=== PATIENT | male | born 1995 | race American Indian/Alaskan Native ===

== ENCOUNTER 2017-10-12 19:26 | Emergency (ER) | payer SELFPAY ==
[2017-10-12 19:33] VITALS: BP 137/82
--- NOTE | 2017-10-12 21:04 | Emergency Department Report ---
Chief Complaint: Skin/Abscess/Foreign Body Stated Complaint: BOIL Time Seen by Provider: 10/12/17 21:01 - HPI History of Present Illness: 22-year-old -[place] male comes in complaining of boil like lesion on his back. Patient denies any pain or tenderness to palpation she reports that it comes and goes. He denies any fever chills no nausea vomiting. - ROS Review of Systems: Stable vital signs BP 137/82 heart rate 71 respirations 16 pulse ox 98 on room air temperature is 98.7 - Exam Vital Signs: Vital Signs 10/12/17 19:26 Temperature 98.7 F Pulse Rate 71 Respiratory 16 Rate Blood Pressure 137/82 O2 Sat by Pulse 98 Oximetry Physical Exam: Patient's alert and oriented 3. Patient is nontoxic in appearance Back there appears to be a 7 x 6 cm lipoma. It is nontender to palpate. MSE screening note: Focused history and physical exam performed. Due to findings the following was ordered: Discussed patient discuss considered non-emergency examination. Discussed the patient best be evaluated by primary care provider or surgeon. Patient verbalized understanding. ED Disposition for MSE Condition: Stable Referrals: AMANDA JALLOH MD [Primary Care Provider] - 3-5 Days
== END 2017-10-12 21:02 | disposition left against medical advice (07) ==
LOC: ED 19:26
DX: L02.222 Furuncle of back [any part, except buttock and flank] (principal); Z53.21 Procedure and treatment not carried out due to patient leaving prior to being seen by health care provider

== ENCOUNTER 2019-03-20 10:22 | Emergency (ER) | payer SELFPAY ==
--- NOTE | 2019-03-20 12:26 | Emergency Department Report ---
ED Back Pain/Injury HPI - General Chief Complaint: Back Pain/Injury Stated Complaint: LUMP ON BACK Time Seen by Provider: 03/20/19 12:22 Source: patient Limitations: No Limitations - History of Present Illness Initial Comments: 23-year-old -[place] female presents to the emergency room complaining of intermittent back pain where there is a lump in his back. Patient states at times it radiates to his chest. Patient denies any nausea vomiting or shortness of breathing or chest pain. She denies any trauma to his back or chest. MD Complaint: back pain -: month(s) Similar Symptoms Previously: Yes Consistency: intermittent (palpation) Associated Symptoms: denies other symptoms - Related Data Previous Rx's Medication Instructions Recorded Last Taken Type Naproxen Sodium [Naproxen Sodium 550 mg PO BID PRN #30 tablet 03/20/19 Unknown Rx 550mg] Allergies Allergy/AdvReac Type Severity Reaction Status Date / Time No Known Allergies Allergy Verified 03/20/19 10:50 ED Review of Systems ROS: Stated complaint: LUMP ON BACK Other details as noted in HPI Comment: All other systems reviewed and negative ED Past Medical Hx - Surgical History Additional Surgical History: angiogram - Social History Smoking Status: Current Every Day Smoker Substance Use Type: Alcohol - Medications Home Medications: Home Medications Medication Instructions Recorded Confirmed Last Taken Type Naproxen Sodium [Naproxen Sodium 550 mg PO BID PRN #30 tablet 03/20/19 Unknown Rx 550mg] ED Physical Exam - General Limitations: No Limitations General appearance: alert, in no apparent distress - Head Head exam: Present: atraumatic, normocephalic - Eye Eye exam: Present: normal appearance - ENT ENT exam: Present: mucous membranes moist - Neck Neck exam: Present: normal inspection, full ROM. Absent: tenderness - Respiratory Respiratory exam: Present: normal lung sounds bilaterally, other (4 cm x 6 cm lipoma). Absent: respiratory distress, wheezes, chest wall tenderness - Cardiovascular Cardiovascular Exam: Present: regular rate, normal rhythm. Absent: systolic murmur, diastolic murmur, rubs, gallop - Neurological Exam Neurological exam: Present: alert, oriented X3, normal gait - Psychiatric Psychiatric exam: Present: normal affect, normal mood - Skin Skin exam: Present: warm, dry, intact, normal color. Absent: rash ED Course Vital Signs 03/20/19 03/20/19 10:47 10:49 Temperature 97.9 F 97.9 F Pulse Rate 59 L 57 L Respiratory 16 18 Rate Blood Pressure 147/90 147/90 O2 Sat by Pulse 100 100 Oximetry ED Medical Decision Making - Medical Decision Making 23-year-old -[place] female presents to the emergency room complaining of intermittent back pain where there is a lump in his back. Patient states at times it radiates to his chest. Patient denies any nausea vomiting or shortness of breathing or chest pain. She denies any trauma to his back or chest. Patient appears to have a lipoma on the left lateral vertebral space. It is nontender to palpate. Discussed the patient would be best evaluated by a general surgeon. I discussed the patient he can take naproxen Advil or Tylenol as needed for pain management. Patient verbalizes understanding. Critical care attestation.: If time is entered above; I have spent that time in minutes in the direct care of this critically ill patient, excluding procedure time. ED Disposition Clinical Impression: Lipoma of back Disposition: DC-01 TO HOME OR SELFCARE Is pt being admited?: No Does the pt Need Aspirin: No Condition: Stable Instructions: Lipoma (ED) Prescriptions: Naproxen Sodium [Naproxen Sodium 550mg] 550 mg PO BID PRN #30 tablet PRN Reason: Pain , Severe (7-10) Referrals: AGUSTÍN RIDDLE DO [Staff Physician] - 3-5 Days Forms: Accompanied Note, Work/School Release Form(ED)
[2019-03-20 13:33] VITALS: BP 140/88
== END 2019-03-20 12:49 | disposition home or self-care (01) ==
LOC: ED 10:22
DX: D17.39 Benign lipomatous neoplasm of skin and subcutaneous tissue of other sites (principal)
CPT/HCPCS: 99282

== ENCOUNTER 2019-07-14 07:27 | Emergency (ER) | payer SELFPAY ==
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
[2019-07-14 12:06] VITALS: BP 157/87
== END 2019-07-14 12:07 | disposition home or self-care (01) ==
LOC: ED 07:27
DX: R46.2 Strange and inexplicable behavior (principal); F17.200 Nicotine dependence, unspecified, uncomplicated; Z86.2 Personal history of diseases of the blood and blood-forming organs and certain disorders involving the immune mechanism; Z79.899 Other long term (current) drug therapy
CPT/HCPCS: 99283

== ENCOUNTER 2019-12-18 16:33 | Emergency (ER) | payer SELFPAY ==
[2019-12-18 16:44] VITALS: BP 135/82
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
== END 2019-12-19 03:45 | disposition left against medical advice (07) ==
LOC: ED 16:33
DX: Z20.2 Contact with and (suspected) exposure to infections with a predominantly sexual mode of transmission (principal); Z53.21 Procedure and treatment not carried out due to patient leaving prior to being seen by health care provider

== ENCOUNTER 2020-06-11 10:58 | Emergency (ER) | payer SELFPAY ==
[2020-06-11 11:09] VITALS: BP 142/81
--- NOTE | 2020-06-11 11:17 | Emergency Department Report ---
Chief Complaint: Back Pain/Injury Stated Complaint: BACK/NECK PAIN Time Seen by Provider: 06/11/20 11:16 - HPI History of Present Illness: Patient is a 25-year-old male who presents emergency room with complaints of back pain from a lipoma. He has recorded history of a lipoma back in 2018. He states that he never followed up with a hairpiece stylist or general surgeon. He states that over the last few days that the pain has been increasing secondary to the lipoma. He denies any drainage, fever, nausea, vomiting, diarrhea, abdominal pain, chills. Past medical history of ADHD and bipolar and he reports he has chronic left-sided weakness. He denies any allergies to medications. VSS on exam: 4 cm x 6 cm lipoma in the middle back on the left side, no erythema, no increased warmth, no fluctuance, no opening, no necrosis, no skin denuding Examination appears consistent with lipoma which patient has had since 2018, based on prior physical examinations it appears that it has not grown in size Patient will be referred to general surgery Discussed [id number] pain relievers Discussed strict return precautions and signs of infection Patient given the appropriate resources Medical screening examination performed and there is no threat to life or limb at this time - Exam Vital Signs: Vital Signs 06/11/20 11:07 Temperature 98.0 F Pulse Rate 102 H Respiratory 16 Rate Blood Pressure 142/81 O2 Sat by Pulse 96 Oximetry MSE screening note: Focused history and physical exam performed. Due to findings the following was ordered: ED Disposition for MSE Clinical Impression: Lipoma Qualifiers: Lipoma location: trunk Qualified Code(s): D17.1 - Benign lipomatous neoplasm of skin and subcutaneous tissue of trunk Disposition: Z-07 MED SCREENING EXAM-LEFT Is pt being admited?: No Does the pt Need Aspirin: No Condition: Stable Instructions: Lipoma Additional Instructions: May take Tylenol or ibuprofen as needed for discomfort. Please follow-up with a general surgeon. Return to emergency room for any new or worsening symptoms. Referrals: AGUSTÍN RIDDLE DO [Staff Physician] - 3-5 Days UZMA PAIZ MD [Staff Physician] - 3-5 Days Time of Disposition: 11:18 Print Language: SYRIAC
== END 2020-06-11 11:21 | disposition left against medical advice (07) ==
LOC: ED 10:58
DX: M54.2 Cervicalgia (principal); Z53.21 Procedure and treatment not carried out due to patient leaving prior to being seen by health care provider

== ENCOUNTER 2020-10-08 03:12 | Emergency (ER) | payer SELFPAY ==
[2020-10-08 03:33] VITALS: BP 158/96
--- NOTE | 2020-10-08 04:34 | XRay Report ---
CHEST 2 VIEWS INDICATION: chest pain. COMPARISON: None. FINDINGS: Support devices: None. Heart: Within normal limits. Lungs/Pleura: No acute air space or interstitial disease. No significant pleural effusion. IMPRESSION: No acute findings. Signer Name: Everett Davenport MD Signed: 10/08/2020 4:29 AM Workstation Name: [id number]
--- NOTE | 2020-10-10 11:11 | Electrocardiograph Report ---
[facility] Test Date: 2020-10-08 Test Time: 03:24:04 Pat Name: DARYA FERNANDEZ Department: Room: Gender: M [employer] Swimmer: Dylan DAMIAN : 1995 Requested By: [address] Order Number: [id number] Reading MD: Calvin Braun Measurements Intervals [place] Rate: 60 P: 50 WV: 156 QRS: 54 QRSD: 83 T: 20 QT: 378 QTc: 380 Interpretive Statements Sinus arrhythmia No previous ECG available for comparison Electronically Signed On 10-10-2020 11:11:01 EDT by Calvin Braun
== END 2020-10-08 05:05 | disposition left against medical advice (07) ==
LOC: ED 03:12
DX: R07.9 Chest pain, unspecified (principal); Z53.21 Procedure and treatment not carried out due to patient leaving prior to being seen by health care provider
CPT/HCPCS: 71046; 93005